=== PATIENT | male | born 1985 | race Caucasian/White ===

== ENCOUNTER 2018-11-14 18:03 | Emergency (ER) | payer MEDICAID ==
[2018-11-14 18:32] VITALS: BP 128/81; PULSE 62
--- NOTE | 2018-11-14 18:33 | EDM.PDOC ---
ED HPI GENERAL MEDICAL PROBLEM - General Chief Complaint: General Stated Complaint: EYE ISSUE Time Seen by Provider: 11/14/18 18:15 Source of Information: Reports: Patient History Limitations: Reports: No Limitations - History of Present Illness INITIAL COMMENTS - FREE TEXT/NARRATIVE: Patient states that over the last 48 hours he has noticed his skin started to turn a yellowish color his noticed that his eyes were hurting a yellowish color approximately 2-3 days ago patient states approximate 4-5 days ago he had a apple juice colored urine and thought he might of been a little dehydrated at that time he persistently drink a ton of water tonight is clear he states that since starting to turn a yellowish color he has had increased itching all over with a little bit of fatigue . 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 [No Known Home Meds] 11/14/18 [History] Past Medical History HEENT History: Reports: None Cardiovascular History: Reports: None Respiratory History: Reports: Pneumothorax Gastrointestinal History: Reports: None Genitourinary History: Reports: Renal Calculus Musculoskeletal History: Reports: None Neurological History: Reports: None Psychiatric History: Reports: None Endocrine/Metabolic History: Reports: None Hematologic History: Reports: None Immunologic History: Reports: None Oncologic (Cancer) History: Reports: None Dermatologic History: Reports: None - Past Surgical History Head Surgeries/Procedures: Reports: None GI Surgical History: Reports: Appendectomy Social & Family History - Tobacco Use Smoking Status *Q: Current Some Day Smoker Years of Tobacco use: 10 Packs/Tins Daily: 0.1 ED ROS GENERAL - Review of Systems Review Of Systems: Unable To Obtain Constitutional: Reports: No Symptoms, Fatigue. Denies: Fever, Chills, Malaise, Weakness, Night Sweats, Diaphoresis, Decreased Appetite, Weight Loss, Weight Gain HEENT: Reports: No Symptoms Respiratory: Reports: No Symptoms Cardiovascular: Reports: No Symptoms Endocrine: Reports: Fatigue GI/Abdominal: Denies: Abdominal Pain, Anorexia, Black Stool, Bloody Stool, Constipation, Decreased Appetite, Hematemesis, Hematochezia, Nausea : Reports: No Symptoms Musculoskeletal: Reports: No Symptoms Skin: Reports: Jaundice, Pruritis. Denies: Rash Neurological: Reports: No Symptoms Psychiatric: Reports: No Symptoms Hematologic/Lymphatic: Reports: No Symptoms Immunologic: Reports: No Symptoms ED EXAM, GENERAL - Physical Exam Exam: See Below Exam Limited By: No Limitations General Appearance: Alert, WD/WN, No Apparent Distress Eye Exam: Bilateral Eye: EOMI, PERRL, Other (Noted bilateral sclera icterus patient has no lid lag no proptosis) Ears: Normal External Exam, Normal Canal, Hearing Grossly Normal, Normal TMs Nose: Normal Inspection, Normal Mucosa, No Blood Throat/Mouth: Normal Inspection, Normal Lips, Normal Teeth, Normal Gums, Normal Oropharynx, Normal Voice, No Airway Compromise Head: Atraumatic, Normocephalic Neck: Normal Inspection, Supple, Non-Tender, Full Range of Motion. No: Lymphadenopathy (L), Lymphadenopathy (R) Respiratory/Chest: No Respiratory Distress, Lungs Clear, Normal Breath Sounds, No Accessory Muscle Use, Chest Non-Tender Cardiovascular: Normal Peripheral Pulses, Regular Rate, Rhythm, No Edema, No Gallop, No JVD, No Murmur, No Rub GI/Abdominal: Normal Bowel Sounds, Soft, Non-Tender, No Distention, No Mass, Other (Abdomen is soft and supple no signs of any peritoneal symptoms negative pelvic rock no rigidity noted hepatomegaly no tenderness to palpation). No: No Organomegaly Back Exam: Normal Inspection, Full Range of Motion. No: CVA Tenderness (L), CVA Tenderness (R) Extremities: Normal Inspection, Normal Range of Motion, Non-Tender, No Pedal Edema, Normal Capillary Refill. No: Slow Capillary Refill Neurological: Alert, Oriented, CN II-XII Intact, Normal Cognition, Normal Gait, Normal Reflexes, No Motor/Sensory Deficits Psychiatric: Normal Affect, Normal Mood Skin Exam: Warm, Dry, Jaundice (Patient has diffuse jaundice with no noted spider hemangiomas) Course - Vital Signs Text/Narrative:: CBC CMP and CRP hepatitis panel was ordered along with urinalysis Patient had normal CBC but elevated LFTS positive bilirubin in the urine Called [facility] spoke with Dr. Ervin THOMAS would like to order abdomen and pelvis CT with contrast to rule out obstruction even though the patient does not have any signs or symptoms it is possibility he says if patient needs be transferred he is happy to consult but have the hospitalist except for transfer Spoke with Dr. Palacio in the ER he will be the accepting for transfer patient will go POV patient is currently stable patient will be transferred with a diagnosis of acute cholecystitis which is causing the intrahepatic biliary obstruction Last Recorded V/S: Last Vital Signs Temp 36.8 C 11/14/18 18:18 Pulse 62 11/14/18 18:18 Resp 16 11/14/18 18:18 BP 128/81 11/14/18 18:18 Pulse Ox 98 11/14/18 18:18 - Orders/Labs/Meds Orders: Active Orders 24 hr Category Date Time Status Abdomen Pelvis w Cont [CT] Stat Exams 11/14/18 20:08 Taken HEPATITIS PANEL (4) [REF] Stat Lab 11/14/18 18:50 Received Labs: Laboratory Tests 11/14/18 11/14/18 11/14/18 Range/Units 18:35 18:50 18:50 WBC 5.9 (4.0-10.0) x10^3/uL RBC 4.51 (4.5-6.0) x10^6/uL Hgb 12.4 L (14.0-18.0) g/dL Hct 37.6 L (40.0-52.0) % MCV 83.4 (78.0-93.0) fL MCH 27.5 (26.0-32.0) pg MCHC 33.0 (32.0-36.0) g/dL RDW Coeff of Lacy 17.6 H (10.0-15.0) % Plt Count 384 (130-400) x10^3/uL Neut % (Auto) 63.6 (50.0-80.0) % Lymph % (Auto) 23.9 L (25.0-50.0) % [place] % (Auto) 10.2 (2.0-11.0) % Eos % (Auto) 2.0 (0.0-4.0) % Baso % (Auto) 0.3 (0.2-1.2) % Sodium 141 (136-145) mmol/L Potassium 3.9 (3.5-5.1) mmol/L Chloride 103 (98-107) mmol/L Carbon Dioxide 26 (21-32) mmol/L Anion Gap 15.9 (10-20) mmol/L BUN 15 (7-18) mg/dL Creatinine 1.0 (0.70-1.30) mg/dL Est Cr Clr Drug Dosing 123.30 mL/min Estimated GFR (MDRD) > 60 Glucose 82 (74-106) mg/dL Calcium 9.2 (8.5-10.1) mg/dL Corrected Calcium 9.60 (8.5-10.1) mg/dL Total Bilirubin 8.7 H (0.2-1.0) mg/dL AST 266 H (15-37) U/L ALT 681 H (16-63) U/L Alkaline Phosphatase 1214 H (46-116) U/L C-Reactive Protein 0.9 (<=0.9) mg/dL Total Protein 8.8 H (6.4-8.2) g/dL Albumin 3.5 (3.4-5.0) g/dL Globulin 5.3 Albumin/Globulin Ratio 0.66 Urine Color [place] H (YELLOW) POC Urine Appearance Slightly cloudy H (CLEAR) POC Urine pH 5.5 (5.0-8.0) Ur Specific [place] 1.025 (1.005-1.030) POC Urine Protein Negative (NEGATIVE) POC Ur Glucose (UA) Negative (NEGATIVE) POC Urine Ketones Negative (NEGATIVE) POC Ur Occult Blood Negative (NEGATIVE) POC Urine Nitrite Negative (NEGATIVE) POC Urine Bilirubin Large (NEGATIVE) POC Urine Urobilinogen 0.2 (0.2) POC U Leukocyte Esteras Negative (NEGATIVE) Monoscreen (NEGATIVE) 11/14/18 Range/Units 18:50 WBC (4.0-10.0) x10^3/uL RBC (4.5-6.0) x10^6/uL Hgb (14.0-18.0) g/dL Hct (40.0-52.0) % MCV (78.0-93.0) fL MCH (26.0-32.0) pg MCHC (32.0-36.0) g/dL RDW Coeff of Lacy (10.0-15.0) % Plt Count (130-400) x10^3/uL Neut % (Auto) (50.0-80.0) % Lymph % (Auto) (25.0-50.0) % [place] % (Auto) (2.0-11.0) % Eos % (Auto) (0.0-4.0) % Baso % (Auto) (0.2-1.2) % Sodium (136-145) mmol/L Potassium (3.5-5.1) mmol/L Chloride (98-107) mmol/L Carbon Dioxide (21-32) mmol/L Anion Gap (10-20) mmol/L BUN (7-18) mg/dL Creatinine (0.70-1.30) mg/dL Est Cr Clr Drug Dosing mL/min Estimated GFR (MDRD) Glucose (74-106) mg/dL Calcium (8.5-10.1) mg/dL Corrected Calcium (8.5-10.1) mg/dL Total Bilirubin (0.2-1.0) mg/dL AST (15-37) U/L ALT (16-63) U/L Alkaline Phosphatase (46-116) U/L C-Reactive Protein (<=0.9) mg/dL Total Protein (6.4-8.2) g/dL Albumin (3.4-5.0) g/dL Globulin Albumin/Globulin Ratio Urine Color (YELLOW) POC Urine Appearance (CLEAR) POC Urine pH (5.0-8.0) Ur Specific [place] (1.005-1.030) POC Urine Protein (NEGATIVE) POC Ur Glucose (UA) (NEGATIVE) POC Urine Ketones (NEGATIVE) POC Ur Occult Blood (NEGATIVE) POC Urine Nitrite (NEGATIVE) POC Urine Bilirubin (NEGATIVE) POC Urine Urobilinogen (0.2) POC U Leukocyte Esteras (NEGATIVE) Monoscreen Negative (NEGATIVE) Meds: Medications Discontinued Medications Generic Name Dose Route Start Last Admin Trade Name Freq PRN Reason Stop Dose Admin Iopamidol 100 ml 11/14/18 20:18 11/14/18 20:36 Isovue-300 (61%) IVPUSH 11/14/18 20:19 100 ml ONETIME ONE Administration Departure - Departure Time of Disposition: 21:15 Disposition: DC/Tfer to [facility] 02 Condition: Good Clinical Impression: Elevated liver enzymes, Acute cholecystitis - Discharge Information Referrals: Jeremiah Jackman, [employer] [Primary Care Provider] - Forms: ED Department Discharge Additional Instructions: go directly to [facility] to the emergency room DR Palacio knows you are coming do not eat or drink anything until after you are evaluated in [place] R told you can either drink Return to the emergency room if anything gets worse or changes prior to your discharge are in route to [place] - Problem List & Annotations (1) Elevated liver enzymes SNOMED Code(s): 596649122 Code(s): R74.8 - ABNORMAL LEVELS OF OTHER SERUM ENZYMES Status: Acute Current Visit: Yes (2) Acute cholecystitis SNOMED Code(s): 54737913 Code(s): K81.0 - ACUTE CHOLECYSTITIS Status: Acute Current Visit: Yes - My Orders Last 24 Hours: My Active Orders 11/14/18 18:50 HEPATITIS PANEL (4) [REF] Stat 11/14/18 20:08 Abdomen Pelvis w Cont [CT] Stat - Assessment/Plan Last 24 Hours: My Active Orders 11/14/18 18:50 HEPATITIS PANEL (4) [REF] Stat 11/14/18 20:08 Abdomen Pelvis w Cont [CT] Stat
[2018-11-14 19:19] LABS: CHLORIDE,CL 103 mmol/L (98-107); SODIUM,NA 141 mmol/L (136-145)
[2018-11-14 19:23] LABS: ANION GAP 15.9 mmol/L (10-20)
[2018-11-14] MEDS ORDERED: Iopamidol 612 MG/ML 100 ML Bottle IVPUSH ONE (20:18)
--- NOTE | 2018-11-15 08:01 | CT ---
[id number] CT/CT Abdomen Pelvis W IV EXAM: ABDOMEN AND PELVIS CT WITH CONTRAST INDICATION: Elevated liver function tests with concern for obstruction. COMPARISON: None. DISCUSSION: The gallbladder is distended and there is marked gallbladder wall thickening which could be seen in the context of cholecystitis. Malignancy is not excluded and correlation with clinical signs and symptoms is suggested. This appears to contribute to intrahepatic bile duct obstruction either confluence of the left and right hepatic ducts and there is moderate intrahepatic duct dilation. The common duct is not well seen, but does not appear dilated. The hepatic flexure of the colon appears mildly thick-walled, this is felt to likely be secondary to the adjacent gallbladder pathology. There are scattered colonic diverticula. The spleen is mildly enlarged measuring up to 15.65 cm. Small fat-containing umbilical hernia. The pancreas, adrenal glands, kidneys, small bowel and appendix are normal in appearance. No free air free fluid. IMPRESSION: 1. Marked gallbladder wall thickening could relate to underlying cholecystitis with malignancy not excluded. 2. There is moderate intrahepatic bile duct dilation appearing to relate to the underlying gallbladder pathology. Marcos Ellis MD 11/15/18 0759 Thank you for allowing us to participate in the care of your patient.
== END 2018-11-14 21:34 | disposition short-term general hospital (02) ==
LOC: VM.ED 18:03
DX: K81.0 Acute cholecystitis (principal); R94.5 Abnormal results of liver function studies; F17.210 Nicotine dependence, cigarettes, uncomplicated
CPT/HCPCS: 36415; 74177; 80053; 80074; 81002; 85025; 86140; 86308; 99285; Q9967

== ENCOUNTER 2020-09-16 01:45 | Emergency (ER) | payer BC ==
--- NOTE | 2020-09-16 02:05 | EDM.PDOC ---
ED HPI GENERAL MEDICAL PROBLEM - General Chief Complaint: Lower Extremity Injury/Pain Stated Complaint: Left Foot Pain Time Seen by Provider: 09/16/20 02:00 Source of Information: Reports: Patient History Limitations: Reports: No Limitations - History of Present Illness INITIAL COMMENTS - FREE TEXT/NARRATIVE: Patient comes in with complaints of left foot pain. States around 9 pm he was breaking a stick for firewood with the foot and at the time felt some pain when he stomped down on the wood. He went to bed around 11 pm and just recently awoke with severe pain to the left foot. No other injuries at this time and an otherwise negative ROS. No use of ice, ibuprofen, tylenol, elevation. Onset: Today, Sudden Duration: Getting Worse Location: Reports: Lower Extremity, Left Quality: Reports: Sharp Severity: Moderate Treatments SPIKE MAKER: Reports: Other (see below) (none) - Related Data Allergies Allergy/AdvReac Type Severity Reaction Status Date / Time No Known Allergies Allergy Verified 09/16/20 01:54 Home Meds: Home Meds Acetaminophen [Tylenol] 650 mg PO Q4H PRN 08/28/20 [History] Ascorbic Acid [Vitamin C] 1,000 mg PO DAILY 08/28/20 [History] Cholecalciferol (Vitamin D3) [Vitamin D3] 1,000 unit PO DAILY 08/28/20 [History] Vit A Acet/Vit C/Znox/Propolis [Zinc Lozenges] 1 each PO DAILY 08/28/20 [History] Past Medical History HEENT History: Reports: None Cardiovascular History: Reports: None Respiratory History: Reports: Pneumothorax Gastrointestinal History: Reports: Cholelithiasis, Jaundice, Pancreatitis, Other (See Below) Other Gastrointestinal History: Liver infection, gallbladder and liver abscess/infection; Genitourinary History: Reports: Renal Calculus Musculoskeletal History: Reports: None Neurological History: Reports: None Psychiatric History: Reports: None Endocrine/Metabolic History: Reports: None Hematologic History: Reports: Folic Acid, Other (See Below) Other Hematologic History: IgG4 disease Immunologic History: Reports: None Oncologic (Cancer) History: Reports: None Dermatologic History: Reports: None - Past Surgical History Head Surgeries/Procedures: Reports: None GI Surgical History: Reports: Appendectomy, Cholecystectomy Review of Systems - Review of Systems Review Of Systems: See Below Constitutional: Reports: No Symptoms Eyes: Reports: No Symptoms Ears: Reports: No Symptoms Nose: Reports: No Symptoms Mouth/Throat: Reports: No Symptoms Respiratory: Reports: No Symptoms Cardiovascular: Reports: No Symptoms GI/Abdominal: Reports: No Symptoms Genitourinary: Reports: No Symptoms Musculoskeletal: Reports: Foot Pain (left) Skin: Reports: No Symptoms Neurological: Reports: No Symptoms Psychiatric: Reports: No Symptoms ED EXAM, GENERAL - Physical Exam Exam: See Below Exam Limited By: No Limitations General Appearance: Alert, WD/WN, No Apparent Distress Eye Exam: Bilateral Eye: EOMI Peripheral Pulses: 2+: Posterior Tibial (L), Posterior Tibial (R), Dorsalis Pedis (L), Dorsalis Pedis (R) Extremities: Normal Range of Motion, No Pedal Edema, Normal Capillary Refill, Other (left foot pain on palpation, mild edema to medial malleolus ) Neurological: Alert, Oriented, CN II-XII Intact, Normal Cognition, Normal Gait, Normal Reflexes, No Motor/Sensory Deficits Psychiatric: Normal Affect, Normal Mood Skin Exam: Warm, Dry, Intact, Normal Color, No Rash Lymphatic: No Adenopathy Course - Orders/Labs/Meds Orders: Active Orders 24 hr Category Date Time Status Foot Comp Min 3V Lt [CR] Stat Exams 09/16/20 02:07 Taken Meds: Medications Discontinued Medications Generic Name Dose Route Start Last Admin Trade Name Adamq PRN Reason Stop Dose Admin Ketorolac Tromethamine 30 mg 09/16/20 02:07 09/16/20 02:19 Ketorolac 30 Mg/Ml Sdv IM 09/16/20 02:08 30 mg ONETIME ONE Administration - Radiology Interpretation Free Text/Narrative:: No acute fracture Departure - Departure Time of Disposition: 03:22 Disposition: Home, Self-Care 01 Condition: Good Clinical Impression: Foot sprain Qualifiers: Encounter type: initial encounter Laterality: left Qualified Code(s): S93.602A - Unspecified sprain of left foot, initial encounter - Discharge Information *PRESCRIPTION DRUG MONITORING PROGRAM REVIEWED*: Not Applicable *COPY OF PRESCRIPTION DRUG MONITORING REPORT IN PATIENT HÉCTOR: Not Applicable Instructions: Foot Sprain Referrals: PCP,None [Primary Care Provider] - Forms: ED Department Discharge Additional Instructions: 1. No acute fractures identified 2. Likely sprain of the left foot 3. Rest your foot, elevate, ice, compress for relief of pain and swelling 4. Follow up with your primary doctor in 3-5 days if symptoms are not improving - Problem List & Annotations (1) Foot sprain SNOMED Code(s): 09917888 Code(s): S93.609A - UNSPECIFIED SPRAIN OF UNSPECIFIED FOOT, INITIAL ENCOUNTER Status: Acute Priority: Low Qualifiers: Encounter type: initial encounter Laterality: left Qualified Code(s): S93.602A - Unspecified sprain of left foot, initial encounter - Problem List Review Problem List Initiated/Reviewed/Updated: Yes - My Orders Last 24 Hours: My Active Orders 09/16/20 02:07 Foot Comp Min 3V Lt [CR] Stat - Assessment/Plan Last 24 Hours: My Active Orders 09/16/20 02:07 Foot Comp Min 3V Lt [CR] Stat Assessment:: left foot sprain Plan: 1. No acute fractures identified 2. Likely sprain of the left foot 3. Rest your foot, elevate, ice, compress for relief of pain and swelling 4. Follow up with your primary doctor in 3-5 days if symptoms are not improving
[2020-09-16] MEDS ORDERED: Ketorolac 30 MG/ML SDV IM ONE (02:07)
[2020-09-16 06:06] VITALS: BP 148/85; PULSE 114
--- NOTE | 2020-09-16 08:59 | CR ---
[id number] RAD/RAD Foot Left 3V Min Exam: RAD Foot Left 3V Min Indication:INJURY Comparison: No prior imaging for comparison. Discussion/Impression: Bones in normal alignment. No fracture, AVN, or erosive changes. Joint spaces are well-preserved. Bone mineralization is normal. Dean Anne MD 09/16/20 0858 Thank you for allowing us to participate in the care of your patient.
== END 2020-09-16 03:22 | disposition home or self-care (01) ==
LOC: VM.ED 01:45
DX: S93.602A Unspecified sprain of left foot, initial encounter (principal); W22.8XXA Striking against or struck by other objects, initial encounter
CPT/HCPCS: 73630-LT; 96372; 99283; J1885